=== PATIENT | male | born 1945 | race Caucasian/White ===

== ENCOUNTER 2023-09-25 23:09 | Inpatient (IN) | payer MEDICARE, OTHER ==
[~2023-09-25] VITALS: Ht 177.8 cm; Wt 72.6 kg
[2023-09-26 00:53] LABS: CALCIUM, SERUM 9.1 mg/dL (8.5-10.1); CARBON DIOXIDE 25 mmol/L (21-32); CHLORIDE 105 mmol/L (98-107); CREATININE 0.8 mg/dL (0.6-1.3); GLUCOSE 118 mg/dL (74-106); POTASSIUM 3.6 mmol/L (3.5-5.1); SODIUM SERUM 138 mmol/L (136-145); UREA NITROGEN, BLOOD 10 mg/dL (7-18)
[2023-09-26 00:57] LABS: BASOPHILS % (AUTO) 0.3 % (0.0-2.0); EOSINOPHILS # (AUTO) 0.6 K/uL (0.0-0.7); EOSINOPHILS % (AUTO) 8.3 % (0.0-6.0); HEMATOCRIT 41 % (39-51); HEMOGLOBIN 13.9 g/dL (13.5-17.5); LYMPHOCYTES # (AUTO) 2.2 K/uL (0.8-4.8); LYMPHOCYTES % (AUTO) 28.6 % (20.0-44.0); MEAN CORPUSCULAR HEMOGLOBIN 30 PG (26.0-33.0); MEAN CORPUSCULAR HGB CONC 34 g/dl (31.0-36.0); MEAN CORPUSCULAR VOLUME 90 fL (80-96); MONOCYTES # (AUTO) 0.6 K/uL (0.1-1.30); MONOCYTES % (AUTO) 7.3 % (2.0-12.0); NEUTROPHILS # (AUTO) 4.2 K/uL (1.8-8.9); NEUTROPHILS % (AUTO) 55.5 % (43.0-81.0); PLATELET COUNT (AUTO) 160 K/uL (150-450); RED CELL DISTRIBUTION WIDTH 14.4 % (11.5-15.0); WHITE BLOOD COUNT (AUTO) 7.7 K/uL (4.3-11.0)
[2023-09-26 00:58] LABS: ALANINE AMINOTRANSFERASE 13 U/L (12-78); ALBUMIN 3.5 g/dL (3.4-5.0); ALCOHOL, BLOOD < 3 mg/dL (0-10); ALKALINE PHOSPHATASE 114 U/L (46-116); ASPARTATE AMINOTRANSFERASE 14 U/L (15-37); BILIRUBIN,DIRECT 0.1 mg/dL (0.0-0.2); BILIRUBIN,TOTAL 0.4 mg/dL (0.2-1.0); TOTAL PROTEIN, SERUM 8.2 g/dL (6.4-8.2)
[2023-09-26 01:03] LABS: ACETAMINOPHEN <10 ug/ml (10-30); SALICYLATE 0.6 mg/dL (2.8-20.0)
[2023-09-26 02:28] LABS: APPEARANCE,URINE SLIGHTLY CLOUDY (CLEAR); BILIRUBIN,URINE NEGATIVE (NEGATIVE); BLOOD, URINE 1+ Ery/uL (NEGATIVE); COLOR,URINE YELLOW (YELLOW); KETONES,URINE NEGATIVE (NEGATIVE); LEUKOCYTE ESTERASE ,URINE NEGATIVE (NEGATIVE); NITRITE, URINE NEGATIVE (NEGATIVE); PH,URINE 6.5 (5.0-8.0); PROTEIN,URINE NEGATIVE (NEGATIVE); UGLUCOSE NEGATIVE (NEGATIVE)
[2023-09-26 02:29] LABS: ADD URINE CULTURE NO; BACTERIA,URINE Rare /HPF (None Seen); SQUAMOUS EPITHELIAL CELL,UR Rare /HPF (None Seen); WBC,URINE 0-2 /HPF (0-3)
[2023-09-26 02:38] LABS: AMPHETAMINE, URINE NEGATIVE (NEGATIVE); BARBITURATE, URINE NEGATIVE (NEGATIVE); BENZODIAZEPINE, URINE NEGATIVE (NEGATIVE); CANNABINOID, URINE NEGATIVE (NEGATIVE); COCCAINE, URINE NEGATIVE (NEGATIVE); OPIATE, URINE NEGATIVE (NEGATIVE); PHENCYCLIDINE SCREEN,URINE NEGATIVE (NEGATIVE)
[2023-09-26] MEDS ORDERED: QUET50TA PO (04:37)
[2023-09-26] MEDS ORDERED: BISA-79 PO (04:46)
[2023-09-26] MEDS ORDERED: TEMA15CA5 PO (04:46)
[2023-09-26] MEDS ORDERED: DOCU100C36 PO (04:46)
[2023-09-26] MEDS ORDERED: ACET-73 PO (04:46)
[2023-09-26] MEDS ORDERED: PANT40TA2 PO (04:46)
[2023-09-26] MEDS ORDERED: DONE10TA11 PO (04:46)
[2023-09-26] MEDS ORDERED: HYDR-500 PO (04:46)
[2023-09-26] MEDS ORDERED: DIVA250T PO (04:46)
[2023-09-26] MEDS ORDERED: LORAZEPAM 0.5 MG TABLET PO PRN (06:00)
[2023-09-26] MEDS ORDERED: MAG HYDROX/AL HYDROX/SIMETH 30 ML UDC PO PRN (06:00)
[2023-09-26] MEDS ORDERED: BLOOD SUGAR DIAGNOSTIC 1 EACH STRIP IN ONE (06:00)
[2023-09-26] MEDS ORDERED: ACETAMINOPHEN 325 MG TABLET PO PRN (06:00)
[2023-09-26] MEDS ORDERED: MAGNESIUM HYDROXIDE 30 ML UDC PO PRN (06:00)
[2023-09-26] MEDS ORDERED: Z GUARD REMEDY 4 OZ OINT TP PRN (07:00)
[2023-09-26 08:00] VITALS: BP 130/62; TEMP 98.2; O2SAT 97
[2023-09-26] MEDS ORDERED: BISA10SU11 RC (08:28)
[2023-09-26] MEDS ORDERED: ACET-868 PO (08:28)
[2023-09-26] MEDS ORDERED: MULT-213 PO (08:28)
[2023-09-26] MEDS: LORAZEPAM 0.5 MG TABLET PO PRN ×2 (12:31→18:41)
[2023-09-26] MEDS: DIVALPROEX SODIUM 250 MG TABLET.DR PO SCH ×2 (14:14→16:35)
[2023-09-26] MEDS: QUETIAPINE FUMARATE 100 MG TABLET PO SCH ×2 (14:14→16:35)
[2023-09-26 16:00] VITALS: BP 126/72; TEMP 97.9; O2SAT 96
[2023-09-26] MEDS ORDERED: BISACODYL SUPP (10 MG) 10 MG/SUPP.RECT SUPP.RECT RC PRN (20:00)
[2023-09-26 20:08] VITALS: BP 121/91; TEMP 98.1; O2SAT 97
[2023-09-26] MEDS: TEMAZEPAM 7.5 MG CAPSULE PO PRN (21:39)
[2023-09-26] MEDS: DONEPEZIL 5 MG TABLET PO SCH (21:39)
[2023-09-27 08:00] VITALS: BP 112/73; TEMP 97.7; O2SAT 97
[2023-09-27] MEDS: MULTIVIT W/MINERALS 1 TAB TABLET PO SCH (09:05)
[2023-09-27] MEDS: QUETIAPINE FUMARATE 100 MG TABLET PO SCH ×2 (09:05→16:40)
[2023-09-27] MEDS: DOCUSATE SODIUM 100 MG CAPSULE PO SCH (09:05)
[2023-09-27] MEDS: PANTOPRAZOLE 40 MG TABLET.DR PO SCH (09:06)
[2023-09-27] MEDS: DIVALPROEX SODIUM 250 MG TABLET.DR PO SCH ×2 (09:06→16:40)
[2023-09-27] MEDS: UREA LOTION 10% 177 ML BOTTLE TP SCH (13:27)
[2023-09-27 16:00] VITALS: BP 116/63; TEMP 97.9; O2SAT 96
[2023-09-27 20:20] VITALS: BP 127/73; TEMP 97.9; O2SAT 100
[2023-09-27] MEDS: DONEPEZIL 5 MG TABLET PO SCH (22:05)
[2023-09-28 07:27] LABS: BASOPHILS % (AUTO) 0.2 % (0.0-2.0); EOSINOPHILS # (AUTO) 0.8 K/uL (0.0-0.7); EOSINOPHILS % (AUTO) 10.7 % (0.0-6.0); HEMATOCRIT 41 % (39-51); HEMOGLOBIN 13.4 g/dL (13.5-17.5); LYMPHOCYTES # (AUTO) 1.5 K/uL (0.8-4.8); LYMPHOCYTES % (AUTO) 20.5 % (20.0-44.0); MEAN CORPUSCULAR HEMOGLOBIN 30 PG (26.0-33.0); MEAN CORPUSCULAR HGB CONC 33 g/dl (31.0-36.0); MEAN CORPUSCULAR VOLUME 91 fL (80-96); MONOCYTES # (AUTO) 0.5 K/uL (0.1-1.30); MONOCYTES % (AUTO) 7.5 % (2.0-12.0); NEUTROPHILS # (AUTO) 4.5 K/uL (1.8-8.9); NEUTROPHILS % (AUTO) 61.1 % (43.0-81.0); PLATELET COUNT (AUTO) 154 K/uL (150-450); RED BLOOD CELL COUNT(AUTO) 4.49 MIL/uL (4.5-6.0); RED CELL DISTRIBUTION WIDTH 14.7 % (11.5-15.0); WHITE BLOOD COUNT (AUTO) 7.3 K/uL (4.3-11.0)
[2023-09-28 08:00] VITALS: BP 126/61; TEMP 98.6; O2SAT 97
[2023-09-28 08:18] LABS: ALBUMIN 2.8 g/dL (3.4-5.0); BILIRUBIN,TOTAL 0.6 mg/dL (0.2-1.0); CALCIUM, SERUM 8.5 mg/dL (8.5-10.1); CREATININE 0.8 mg/dL (0.6-1.3); POTASSIUM 3.6 mmol/L (3.5-5.1)
[2023-09-28] MEDS: PANTOPRAZOLE 40 MG TABLET.DR PO SCH (08:27)
[2023-09-28] MEDS: MULTIVIT W/MINERALS 1 TAB TABLET PO SCH (09:13)
[2023-09-28] MEDS: DOCUSATE SODIUM 100 MG CAPSULE PO SCH (09:13)
[2023-09-28] MEDS: DIVALPROEX SODIUM 250 MG TABLET.DR PO SCH ×2 (09:13→16:44)
[2023-09-28] MEDS: QUETIAPINE FUMARATE 100 MG TABLET PO SCH ×2 (09:13→16:44)
[2023-09-28] MEDS: UREA LOTION 10% 177 ML BOTTLE TP SCH (09:15)
[2023-09-28 16:07] VITALS: BP 123/68; TEMP 98.1; O2SAT 99
[2023-09-28 20:00] VITALS: BP 120/80; TEMP 98; O2SAT 100
[2023-09-28] MEDS: DONEPEZIL 5 MG TABLET PO SCH (21:20)
[2023-09-29 08:00] VITALS: BP 111/89; TEMP 98.4; O2SAT 98
[2023-09-29] MEDS: MULTIVIT W/MINERALS 1 TAB TABLET PO SCH (09:16)
[2023-09-29] MEDS: PANTOPRAZOLE 40 MG TABLET.DR PO SCH (09:16)
[2023-09-29] MEDS: DOCUSATE SODIUM 100 MG CAPSULE PO SCH (09:16)
[2023-09-29] MEDS: DIVALPROEX SODIUM 250 MG TABLET.DR PO SCH ×2 (09:16→17:16)
[2023-09-29] MEDS: QUETIAPINE FUMARATE 100 MG TABLET PO SCH ×2 (09:17→17:17)
[2023-09-29] MEDS: UREA LOTION 10% 177 ML BOTTLE TP SCH (09:18)
[2023-09-29 16:00] VITALS: BP 113/56; TEMP 98.8; O2SAT 98
[2023-09-29 19:41] VITALS: BP 112/52; TEMP 98.6; O2SAT 97
[2023-09-29] MEDS: DONEPEZIL 5 MG TABLET PO SCH (21:06)
[2023-09-30 08:06] VITALS: BP 126/60; TEMP 97; O2SAT 99
[2023-09-30] MEDS: PANTOPRAZOLE 40 MG TABLET.DR PO SCH (08:20)
[2023-09-30] MEDS: DOCUSATE SODIUM 100 MG CAPSULE PO SCH (08:20)
[2023-09-30] MEDS: DIVALPROEX SODIUM 250 MG TABLET.DR PO SCH ×2 (08:20→16:08)
[2023-09-30] MEDS: MULTIVIT W/MINERALS 1 TAB TABLET PO SCH (08:20)
[2023-09-30] MEDS: QUETIAPINE FUMARATE 100 MG TABLET PO SCH ×2 (08:20→16:09)
[2023-09-30] MEDS: UREA LOTION 10% 177 ML BOTTLE TP SCH (08:21)
[2023-09-30] MEDS: LORAZEPAM 0.5 MG TABLET PO PRN (12:33)
[2023-09-30 14:46] VITALS: BP 119/61; TEMP 98.1; O2SAT 96
[2023-09-30] MEDS: CLOTRIMAZOLE/BETAMETASONE DIPROPIONATE 15 GM TUBE TP SCH (17:18)
[2023-09-30] MEDS: DONEPEZIL 5 MG TABLET PO SCH (21:34)
[2023-09-30 22:00] VITALS: BP 143/75; TEMP 98.4; O2SAT 97
[2023-10-01 08:00] VITALS: BP 141/70; TEMP 97.9; O2SAT 100
[2023-10-01] MEDS: DIVALPROEX SODIUM 250 MG TABLET.DR PO SCH ×3 (08:23→16:10)
[2023-10-01] MEDS: DOCUSATE SODIUM 100 MG CAPSULE PO SCH (08:23)
[2023-10-01] MEDS: PANTOPRAZOLE 40 MG TABLET.DR PO SCH (08:23)
[2023-10-01] MEDS: MULTIVIT W/MINERALS 1 TAB TABLET PO SCH (08:23)
[2023-10-01] MEDS: QUETIAPINE FUMARATE 100 MG TABLET PO SCH ×2 (08:24→16:10)
[2023-10-01] MEDS: UREA LOTION 10% 177 ML BOTTLE TP SCH (08:39)
[2023-10-01] MEDS: CLOTRIMAZOLE/BETAMETASONE DIPROPIONATE 15 GM TUBE TP SCH ×2 (08:39→17:16)
[2023-10-01 16:00] VITALS: BP 146/80; TEMP 98; O2SAT 94
[2023-10-01 20:00] VITALS: BP 123/67; TEMP 98.1; O2SAT 97
[2023-10-01] MEDS: TEMAZEPAM 7.5 MG CAPSULE PO PRN (21:14)
[2023-10-01] MEDS: DONEPEZIL 5 MG TABLET PO SCH (21:14)
[2023-10-02] MEDS: LORAZEPAM 0.5 MG TABLET PO PRN (01:05)
[2023-10-02 08:00] VITALS: BP 116/66; TEMP 97.7; O2SAT 95
[2023-10-02] MEDS: QUETIAPINE FUMARATE 100 MG TABLET PO SCH ×2 (08:12→16:14)
[2023-10-02] MEDS: DIVALPROEX SODIUM 250 MG TABLET.DR PO SCH ×3 (08:12→16:14)
[2023-10-02] MEDS: PANTOPRAZOLE 40 MG TABLET.DR PO SCH (08:12)
[2023-10-02] MEDS: MULTIVIT W/MINERALS 1 TAB TABLET PO SCH (08:12)
[2023-10-02] MEDS: DOCUSATE SODIUM 100 MG CAPSULE PO SCH (08:12)
[2023-10-02] MEDS: UREA LOTION 10% 177 ML BOTTLE TP SCH (09:04)
[2023-10-02] MEDS: CLOTRIMAZOLE/BETAMETASONE DIPROPIONATE 15 GM TUBE TP SCH ×2 (09:04→17:04)
[2023-10-02 16:00] VITALS: BP_SYST 121; BP_SYST 129; BP_DIAS 62; BP_DIAS 71; TEMP 98.1; TEMP 98.4; O2SAT 100; O2SAT 98
[2023-10-02 20:00] VITALS: BP 126/71; TEMP 97.6; O2SAT 97
[2023-10-02] MEDS: DONEPEZIL 5 MG TABLET PO SCH (21:39)
[2023-10-03 08:00] VITALS: BP 129/77; TEMP 98; O2SAT 96
[2023-10-03] MEDS: PANTOPRAZOLE 40 MG TABLET.DR PO SCH (08:02)
[2023-10-03] MEDS: DIVALPROEX SODIUM 250 MG TABLET.DR PO SCH ×3 (08:03→16:12)
[2023-10-03] MEDS: MULTIVIT W/MINERALS 1 TAB TABLET PO SCH (08:03)
[2023-10-03] MEDS: DOCUSATE SODIUM 100 MG CAPSULE PO SCH (08:03)
[2023-10-03] MEDS: QUETIAPINE FUMARATE 25 MG TABLET PO SCH (08:03)
[2023-10-03] MEDS: CLOTRIMAZOLE/BETAMETASONE DIPROPIONATE 15 GM TUBE TP SCH ×2 (09:06→16:12)
[2023-10-03] MEDS: UREA LOTION 10% 177 ML BOTTLE TP SCH (09:07)
[2023-10-03 16:00] VITALS: BP 121/69; TEMP 98.6; O2SAT 96
[2023-10-03 20:00] VITALS: BP 129/67; TEMP 98.5; O2SAT 97
[2023-10-03] MEDS: DONEPEZIL 5 MG TABLET PO SCH (21:24)
[2023-10-03] MEDS: QUETIAPINE FUMARATE 100 MG TABLET PO SCH (21:24)
[2023-10-04 08:00] VITALS: BP 132/78; TEMP 97.8; O2SAT 94
[2023-10-04] MEDS: PANTOPRAZOLE 40 MG TABLET.DR PO SCH (08:13)
[2023-10-04] MEDS: QUETIAPINE FUMARATE 25 MG TABLET PO SCH (09:45)
[2023-10-04] MEDS: UREA LOTION 10% 177 ML BOTTLE TP SCH (09:45)
[2023-10-04] MEDS: MULTIVIT W/MINERALS 1 TAB TABLET PO SCH (09:45)
[2023-10-04] MEDS: DOCUSATE SODIUM 100 MG CAPSULE PO SCH (09:45)
[2023-10-04] MEDS: DIVALPROEX SODIUM 250 MG TABLET.DR PO SCH ×3 (09:45→17:04)
[2023-10-04] MEDS: CLOTRIMAZOLE/BETAMETASONE DIPROPIONATE 15 GM TUBE TP SCH ×2 (09:45→17:08)
[2023-10-04 16:00] VITALS: BP 138/76; TEMP 98; O2SAT 96
[2023-10-04] MEDS: LORAZEPAM 0.5 MG TABLET PO PRN (17:04)
[2023-10-04 20:31] VITALS: BP 131/73; TEMP 98; O2SAT 96
[2023-10-04] MEDS: DONEPEZIL 5 MG TABLET PO SCH (21:18)
[2023-10-04] MEDS: QUETIAPINE FUMARATE 100 MG TABLET PO SCH (21:19)
[2023-10-05 07:01] LABS: BASOPHILS % (AUTO) 0.3 % (0.0-2.0); EOSINOPHILS # (AUTO) 0.5 K/uL (0.0-0.7); EOSINOPHILS % (AUTO) 8.5 % (0.0-6.0); HEMATOCRIT 42 % (39-51); HEMOGLOBIN 13.8 g/dL (13.5-17.5); LYMPHOCYTES # (AUTO) 1.8 K/uL (0.8-4.8); LYMPHOCYTES % (AUTO) 28.5 % (20.0-44.0); MEAN CORPUSCULAR HEMOGLOBIN 30 PG (26.0-33.0); MEAN CORPUSCULAR HGB CONC 33 g/dl (31.0-36.0); MEAN CORPUSCULAR VOLUME 91 fL (80-96); MONOCYTES # (AUTO) 0.5 K/uL (0.1-1.30); MONOCYTES % (AUTO) 7.9 % (2.0-12.0); NEUTROPHILS # (AUTO) 3.5 K/uL (1.8-8.9); NEUTROPHILS % (AUTO) 54.8 % (43.0-81.0); PLATELET COUNT (AUTO) 170 K/uL (150-450); RED BLOOD CELL COUNT(AUTO) 4.63 MIL/uL (4.5-6.0); RED CELL DISTRIBUTION WIDTH 14.5 % (11.5-15.0); WHITE BLOOD COUNT (AUTO) 6.4 K/uL (4.3-11.0)
[2023-10-05 07:27] LABS: ALBUMIN 3.1 g/dL (3.4-5.0); BILIRUBIN,TOTAL 0.4 mg/dL (0.2-1.0); CALCIUM, SERUM 8.8 mg/dL (8.5-10.1); CREATININE 0.8 mg/dL (0.6-1.3); POTASSIUM 3.7 mmol/L (3.5-5.1); TOTAL PROTEIN, SERUM 7.6 g/dL (6.4-8.2)
[2023-10-05 08:00] VITALS: BP 126/77; TEMP 97.9; O2SAT 98
[2023-10-05] MEDS: PANTOPRAZOLE 40 MG TABLET.DR PO SCH (08:02)
[2023-10-05] MEDS: CLOTRIMAZOLE/BETAMETASONE DIPROPIONATE 15 GM TUBE TP SCH ×2 (08:34→16:11)
[2023-10-05] MEDS: UREA LOTION 10% 177 ML BOTTLE TP SCH (08:34)
[2023-10-05] MEDS: DIVALPROEX SODIUM 250 MG TABLET.DR PO SCH ×3 (08:37→16:11)
[2023-10-05] MEDS: MULTIVIT W/MINERALS 1 TAB TABLET PO SCH (08:37)
[2023-10-05] MEDS: QUETIAPINE FUMARATE 25 MG TABLET PO SCH (08:37)
[2023-10-05] MEDS: DOCUSATE SODIUM 100 MG CAPSULE PO SCH (08:37)
[2023-10-05 16:00] VITALS: BP 142/78; TEMP 97.9; O2SAT 100
[2023-10-05 20:04] VITALS: BP 132/72; TEMP 98.4; O2SAT 99
[2023-10-05] MEDS: QUETIAPINE FUMARATE 100 MG TABLET PO SCH (22:03)
[2023-10-05] MEDS: DONEPEZIL 5 MG TABLET PO SCH (22:03)
[2023-10-06 08:00] VITALS: BP 132/79; TEMP 97.8; O2SAT 96
[2023-10-06] MEDS: QUETIAPINE FUMARATE 25 MG TABLET PO SCH (08:46)
[2023-10-06] MEDS: DOCUSATE SODIUM 100 MG CAPSULE PO SCH (08:46)
[2023-10-06] MEDS: DIVALPROEX SODIUM 250 MG TABLET.DR PO SCH ×2 (08:46→12:04)
[2023-10-06] MEDS: MULTIVIT W/MINERALS 1 TAB TABLET PO SCH (08:46)
[2023-10-06] MEDS: PANTOPRAZOLE 40 MG TABLET.DR PO SCH (08:46)
[2023-10-06] MEDS: CLOTRIMAZOLE/BETAMETASONE DIPROPIONATE 15 GM TUBE TP SCH (09:12)
[2023-10-06] MEDS: UREA LOTION 10% 177 ML BOTTLE TP SCH (09:12)
== END 2023-10-06 13:40 | DRG 885 ==
LOC: ER 23:32 → GPS 09-26 04:19
PROVIDERS: ADMIT Psychiatry & Neurology Psychosomatic Medicine; ATTEND Nurse Practitioner Family
PROC: 0HBBXZX Excision of Right Upper Arm Skin, External Approach, Diagnostic (ICD-10-PCS; principal; 2023-09-28)
PROC: 0HB7XZX Excision of Abdomen Skin, External Approach, Diagnostic (ICD-10-PCS; 2023-09-28)
DX: F29 Unspecified psychosis not due to a substance or known physiological condition (principal); G93.41 Metabolic encephalopathy; F03.918 Unspecified dementia, unspecified severity, with other behavioral disturbance; B35.3 Tinea pedis; F20.9 Schizophrenia, unspecified; J44.9 Chronic obstructive pulmonary disease, unspecified; R21 Rash and other nonspecific skin eruption; L60.1 Onycholysis; Z20.822 Contact with and (suspected) exposure to COVID-19
CPT/HCPCS: 36415; 80048-TC; 80053-TC; 80061-TC; 80076-TC; 80164-TC; 81001; 82962-TC; 85025-TC; 87081-TC; 97112-TC; 97116-TC; 97530-TC; C9803; G0480

== ENCOUNTER 2024-04-11 15:25 | Inpatient (IN) | payer MEDICARE, OTHER ==
[~2024-04-11] VITALS: Ht 172.7 cm; Wt 73.0 kg
[~2024-04-11 15:25] MED LIST: ACET-868 PO; BISA10SU11 RC; DOCU100C36 PO; DONE10TA11 PO; HYDR-500 PO; MULT-213 PO; PANT40TA2 PO
[2024-04-11 16:26] LABS: BASOPHILS % (AUTO) 0.3 % (0.0-2.0); EOSINOPHILS # (AUTO) 0.4 K/uL (0.0-0.7); EOSINOPHILS % (AUTO) 5.1 % (0.0-6.0); HEMATOCRIT 43 % (39-51); HEMOGLOBIN 14.4 g/dL (13.5-17.5); LYMPHOCYTES # (AUTO) 1.8 K/uL (0.8-4.8); LYMPHOCYTES % (AUTO) 22.6 % (20.0-44.0); MEAN CORPUSCULAR HEMOGLOBIN 30 PG (26.0-33.0); MEAN CORPUSCULAR HGB CONC 34 g/dl (31.0-36.0); MEAN CORPUSCULAR VOLUME 90 fL (80-96); MONOCYTES # (AUTO) 0.5 K/uL (0.1-1.30); MONOCYTES % (AUTO) 6.1 % (2.0-12.0); NEUTROPHILS # (AUTO) 5.2 K/uL (1.8-8.9); NEUTROPHILS % (AUTO) 65.9 % (43.0-81.0); PLATELET COUNT (AUTO) 154 K/uL (150-450); RED BLOOD CELL COUNT(AUTO) 4.81 MIL/uL (4.5-6.0); RED CELL DISTRIBUTION WIDTH 15.8 % (11.5-15.0); WHITE BLOOD COUNT (AUTO) 7.9 K/uL (4.3-11.0)
[2024-04-11 16:44] LABS: CALCIUM, SERUM 9.3 mg/dL (8.5-10.1); POTASSIUM 4.3 mmol/L (3.5-5.1)
[2024-04-11] MEDS ORDERED: UREA198C TP (16:44)
[2024-04-11] MEDS ORDERED: QUET50TA PO (16:44)
[2024-04-11] MEDS ORDERED: DIVA-76 PO (16:44)
[2024-04-11] MEDS ORDERED: MAGN400O6 PO (16:44)
[2024-04-11] MEDS ORDERED: BISA10SU11 RC (16:44)
[2024-04-11 16:48] LABS: BILIRUBIN,DIRECT 0.1 mg/dL (0.0-0.2); BILIRUBIN,TOTAL 0.4 mg/dL (0.2-1.0); TOTAL PROTEIN, SERUM 8.6 g/dL (6.4-8.2)
[2024-04-11 16:49] LABS: SALICYLATE 0.6 mg/dL (2.8-20.0)
[2024-04-11 17:29] LABS: APPEARANCE,URINE CLEAR (CLEAR); BILIRUBIN,URINE NEGATIVE (NEGATIVE); BLOOD, URINE TRACE-INTA Ery/uL (NEGATIVE); COLOR,URINE YELLOW (YELLOW); KETONES,URINE TRACE mg/dL (NEGATIVE); LEUKOCYTE ESTERASE ,URINE NEGATIVE (NEGATIVE); NITRITE, URINE NEGATIVE (NEGATIVE); PROTEIN,URINE NEGATIVE (NEGATIVE); UGLUCOSE NEGATIVE (NEGATIVE); UROBILINOGEN,URINE 0.2 EU/dL (0.2)
[2024-04-11 17:52] LABS: AMPHETAMINE, URINE NEGATIVE (NEGATIVE); BARBITURATE, URINE NEGATIVE (NEGATIVE); BENZODIAZEPINE, URINE NEGATIVE (NEGATIVE); CANNABINOID, URINE NEGATIVE (NEGATIVE); COCCAINE, URINE NEGATIVE (NEGATIVE); OPIATE, URINE NEGATIVE (NEGATIVE); PHENCYCLIDINE SCREEN,URINE NEGATIVE (NEGATIVE)
[2024-04-11 18:15] LABS: ADD URINE CULTURE NO; BACTERIA,URINE None seen /HPF (None Seen); MUCUS,URINE Few /LPF (None Seen); SQUAMOUS EPITHELIAL CELL,UR 0-2 /HPF (None Seen); WBC,URINE 0-2 /HPF (0-3)
[2024-04-11] MEDS ORDERED: BISACODYL SUPP (10 MG) 10 MG/SUPP.RECT SUPP.RECT RC PRN (21:00)
[2024-04-11] MEDS ORDERED: ACETAMINOPHEN 325 MG TABLET PO PRN (21:30)
[2024-04-11] MEDS ORDERED: MAG HYDROX/AL HYDROX/SIMETH 30 ML UDC PO PRN (21:30)
[2024-04-11] MEDS ORDERED: MAGNESIUM HYDROXIDE 30 ML UDC PO PRN (21:30)
[2024-04-11] MEDS ORDERED: LORAZEPAM 0.5 MG TABLET PO PRN (21:30)
[2024-04-11] MEDS ORDERED: ZOLPIDEM TARTRATE 5 MG TABLET PO PRN (21:30)
[2024-04-11] MEDS: BLOOD SUGAR DIAGNOSTIC 1 EACH STRIP IN ONE (22:23)
[2024-04-11 22:40] VITALS: BP 140/56; TEMP 98; O2SAT 97
[2024-04-12] MEDS: PANTOPRAZOLE 40 MG TABLET.DR PO SCH (07:30)
[2024-04-12 08:00] VITALS: BP 118/58; TEMP 98.7; O2SAT 96
[2024-04-12] MEDS: DOCUSATE SODIUM 100 MG CAPSULE PO SCH (08:05)
[2024-04-12] MEDS: MULTIVIT W/MINERALS 1 TAB TABLET PO SCH (08:05)
[2024-04-12] MEDS ORDERED: LORAZEPAM 0.5 MG TABLET PO PRN (09:30)
[2024-04-12] MEDS: DIVALPROEX SODIUM 125 MG CAP.SPRINK PO SCH (10:08)
[2024-04-12] MEDS: CLOTRIMAZOLE/BETAMETASONE DIPROPIONATE 15 GM TUBE TP SCH (11:08)
[2024-04-12] MEDS: QUETIAPINE FUMARATE 25 MG TABLET PO SCH (12:33)
[2024-04-12] MEDS ORDERED: DIVALPROEX SODIUM 250 MG TABLET.DR PO SCH (13:00)
[2024-04-12 15:17] LABS: CHOLESTEROL 150 mg/dL (<200); HDL CHOLESTEROL 36 mg/dL (40-60); LDL 101 mg/dL (0-99); TRIGLYCERIDES 120 mg/dL (30-150)
[2024-04-12 15:18] LABS: ALBUMIN 3.2 g/dL (3.4-5.0); BILIRUBIN,TOTAL 0.4 mg/dL (0.2-1.0); CALCIUM, SERUM 9.2 mg/dL (8.5-10.1); POTASSIUM 3.9 mmol/L (3.5-5.1); TOTAL PROTEIN, SERUM 9.1 g/dL (6.4-8.2)
[2024-04-12 16:00] VITALS: BP 143/75; TEMP 98.7; O2SAT 100
[2024-04-12 20:28] VITALS: BP 145/56; TEMP 98; O2SAT 97
[2024-04-12] MEDS: DONEPEZIL 5 MG TABLET PO SCH ×2 (21:31→21:54)
[2024-04-12] MEDS: MEMANTINE HCL 5 MG TABLET PO SCH (21:31)
[2024-04-13 08:00] VITALS: BP 107/65; TEMP 98.6; O2SAT 96
[2024-04-13 16:00] VITALS: BP 113/55; TEMP 97.7; O2SAT 99
[2024-04-13 20:00] VITALS: BP 106/62; TEMP 97.9; O2SAT 98
[2024-04-14 08:00] VITALS: BP 128/66; TEMP 98; O2SAT 96
[2024-04-14] MEDS: UREA 10% -AHA 4% CREAM 57 GM TUBE TP SCH (12:03)
[2024-04-14 16:00] VITALS: BP 122/66; TEMP 97.6; O2SAT 98
[2024-04-14 20:00] VITALS: BP 120/56; TEMP 98.7; O2SAT 96
[2024-04-15 08:00] VITALS: BP 126/63; TEMP 97.7; O2SAT 98
[2024-04-15 16:00] VITALS: BP 127/73; TEMP 98.2; O2SAT 98
[2024-04-15 20:00] VITALS: BP 129/65; TEMP 98; O2SAT 97
[2024-04-16 08:00] VITALS: BP 140/90; TEMP 98; O2SAT 98
[2024-04-16 16:00] VITALS: BP 119/56; TEMP 98.1; O2SAT 98
[2024-04-16] MEDS: DIVALPROEX SODIUM 125 MG CAP.SPRINK PO SCH (16:13)
[2024-04-16 21:12] VITALS: BP 125/66; TEMP 98.2; O2SAT 97
[2024-04-17 09:18] VITALS: BP 117/76; TEMP 96.7; O2SAT 96
[2024-04-17 16:20] VITALS: BP 116/61; TEMP 98.6; O2SAT 98
[2024-04-17 20:22] VITALS: BP 124/58; TEMP 98.6; O2SAT 98
[2024-04-18 08:00] VITALS: BP 123/93; TEMP 98.1; O2SAT 98
[2024-04-18 16:00] VITALS: BP 115/67; TEMP 98.1; O2SAT 97
[2024-04-18 20:13] VITALS: BP 132/76; TEMP 98.1; O2SAT 97
[2024-04-19 08:00] VITALS: BP_SYST 115; BP_SYST 141; BP_DIAS 59; BP_DIAS 79; TEMP 97.9; TEMP 98; O2SAT 96; O2SAT 97
[2024-04-19 16:00] VITALS: BP 109/55; TEMP 97.8; O2SAT 98
[2024-04-19 20:07] VITALS: BP 116/59; TEMP 98; O2SAT 99
[2024-04-20 08:00] VITALS: BP 127/59; TEMP 97.7; O2SAT 98
[2024-04-20 16:00] VITALS: BP 121/70; TEMP 97.9; O2SAT 98
[2024-04-20 20:00] VITALS: BP 143/65; TEMP 98.2; O2SAT 99
[2024-04-21 08:00] VITALS: BP 119/64; TEMP 98; O2SAT 100
[2024-04-21 16:00] VITALS: BP 112/67; TEMP 97.6; O2SAT 96
[2024-04-21 20:00] VITALS: BP 134/62; TEMP 98.1; O2SAT 97
[2024-04-22 08:00] VITALS: BP 131/90; TEMP 97.9; O2SAT 97
== END 2024-04-22 13:30 | DRG 885 ==
LOC: ER 15:57 → GPS 19:47
PROVIDERS: ADMIT Psychiatry & Neurology Psychiatry
DX: F29 Unspecified psychosis not due to a substance or known physiological condition (principal); F01.54 Vascular dementia, unspecified severity, with anxiety; G93.40 Encephalopathy, unspecified; F01.518 Vascular dementia, unspecified severity, with other behavioral disturbance; K21.9 Gastro-esophageal reflux disease without esophagitis; B35.1 Tinea unguium; B35.3 Tinea pedis; G47.00 Insomnia, unspecified; J44.9 Chronic obstructive pulmonary disease, unspecified; Z20.822 Contact with and (suspected) exposure to COVID-19; F39 Unspecified mood [affective] disorder; F25.0 Schizoaffective disorder, bipolar type; F41.9 Anxiety disorder, unspecified
CPT/HCPCS: 36415; 80048-TC; 80053-TC; 80061-TC; 80076-TC; 80164-TC; 81001; 82962-TC; 85025-TC; 97112-TC; 97116-TC; 97530-TC; G0480

== ENCOUNTER 2024-11-01 16:51 | Inpatient (IN) | payer MEDICARE, OTHER ==
[~2024-11-01] VITALS: Ht 167.6 cm; Wt 73.0 kg
[~2024-11-01 16:51] MED LIST changes: +DIVA-76 PO; +MAGN400O6 PO; +QUET50TA PO; +UREA198C TP
[2024-11-01] MEDS ORDERED: MAG HYDROX/AL HYDROX/SIMETH 30 ML UDC PO PRN (18:30)
[2024-11-01] MEDS ORDERED: BISACODYL SUPP (10 MG) 10 MG/SUPP.RECT SUPP.RECT RC PRN (18:30)
[2024-11-01] MEDS ORDERED: ACETAMINOPHEN 325 MG TABLET PO PRN (18:30)
[2024-11-01] MEDS ORDERED: Z GUARD REMEDY 4 OZ OINT TP PRN (18:30)
[2024-11-01] MEDS ORDERED: ONDANSETRON HCL/PF 4 MG/2 ML VIAL IVP PRN (18:30)
[2024-11-01] MEDS ORDERED: MAGNESIUM HYDROXIDE 30 ML UDC PO PRN ×2 (18:30)
[2024-11-01 20:11] LABS: BASOPHILS % (AUTO) 0.5 % (0.0-2.0); EOSINOPHILS # (AUTO) 0.4 K/uL (0.0-0.7); HEMATOCRIT 42 % (39-51); HEMOGLOBIN 14.3 g/dL (13.5-17.5); LYMPHOCYTES # (AUTO) 1.8 K/uL (0.8-4.8); LYMPHOCYTES % (AUTO) 34.9 % (20.0-44.0); MEAN CORPUSCULAR HEMOGLOBIN 30 PG (26.0-33.0); MEAN CORPUSCULAR HGB CONC 34 g/dl (31.0-36.0); MEAN CORPUSCULAR VOLUME 90 fL (80-96); MONOCYTES # (AUTO) 0.5 K/uL (0.1-1.30); MONOCYTES % (AUTO) 9.9 % (2.0-12.0); NEUTROPHILS # (AUTO) 2.4 K/uL (1.8-8.9); NEUTROPHILS % (AUTO) 46.7 % (43.0-81.0); PLATELET COUNT (AUTO) 123 K/uL (150-450); RED BLOOD CELL COUNT(AUTO) 4.72 MIL/uL (4.5-6.0); RED CELL DISTRIBUTION WIDTH 14.2 % (11.5-15.0); WHITE BLOOD COUNT (AUTO) 5.1 K/uL (4.3-11.0)
[2024-11-01 20:29] LABS: CALCIUM, SERUM 8.3 mg/dL (8.5-10.1); CARBON DIOXIDE 29 mmol/L (21-32); CHLORIDE 104 mmol/L (98-107); CREATININE 0.9 mg/dL (0.6-1.3); GLUCOSE 101 mg/dL (74-106); SODIUM SERUM 137 mmol/L (136-145); UREA NITROGEN, BLOOD 12 mg/dL (7-18)
[2024-11-01 20:32] LABS: NT-PRO BNP 158 pg/mL (0-125)
[2024-11-01 21:44] VITALS: BP 139/68; TEMP 97.9; O2SAT 95
[2024-11-01] MEDS: DONEPEZIL 5 MG TABLET PO SCH (23:08)
[2024-11-01] MEDS: QUETIAPINE FUMARATE 25 MG TABLET PO SCH (23:08)
[2024-11-01] MEDS: ENOXAPARIN SODIUM 30 MG/0.3 ML DISP.SYRIN SQ SCH (23:09)
[2024-11-02 06:38] LABS: BASOPHILS % (AUTO) 0.3 % (0.0-2.0); EOSINOPHILS # (AUTO) 0.4 K/uL (0.0-0.7); HEMATOCRIT 43 % (39-51); LYMPHOCYTES % (AUTO) 37.5 % (20.0-44.0); MEAN CORPUSCULAR HEMOGLOBIN 30 PG (26.0-33.0); MEAN CORPUSCULAR HGB CONC 33 g/dl (31.0-36.0); MEAN CORPUSCULAR VOLUME 91 fL (80-96); MONOCYTES # (AUTO) 0.5 K/uL (0.1-1.30); MONOCYTES % (AUTO) 9.8 % (2.0-12.0); NEUTROPHILS # (AUTO) 2.5 K/uL (1.8-8.9); NEUTROPHILS % (AUTO) 45.4 % (43.0-81.0); PLATELET COUNT (AUTO) 106 K/uL (150-450); RED BLOOD CELL COUNT(AUTO) 4.68 MIL/uL (4.5-6.0); RED CELL DISTRIBUTION WIDTH 14.3 % (11.5-15.0); WHITE BLOOD COUNT (AUTO) 5.4 K/uL (4.3-11.0)
[2024-11-02 07:29] LABS: CALCIUM, SERUM 8.3 mg/dL (8.5-10.1); CREATININE 0.9 mg/dL (0.6-1.3); POTASSIUM 3.9 mmol/L (3.5-5.1)
[2024-11-02 07:30] LABS: MAGNESIUM 2.3 mg/dL (1.8-2.4); PHOSPHORUS 3.2 mg/dL (2.5-4.9)
[2024-11-02 08:00] VITALS: BP 118/79; TEMP 98.1; O2SAT 96
[2024-11-02] MEDS ORDERED: PETR368J TP (08:19)
[2024-11-02] MEDS ORDERED: DONE5TAB34 PO (08:19)
[2024-11-02] MEDS ORDERED: MEMA5TAB PO (08:19)
[2024-11-02] MEDS ORDERED: DIVA-78 PO (08:19)
[2024-11-02] MEDS ORDERED: QUET25TA PO (08:19)
[2024-11-02] MEDS: DOCUSATE SODIUM 100 MG CAPSULE PO SCH (10:03)
[2024-11-02] MEDS: PANTOPRAZOLE 40 MG TABLET.DR PO SCH (10:03)
[2024-11-02] MEDS: DIVALPROEX SODIUM 250 MG TABLET.DR PO SCH (10:03)
[2024-11-02] MEDS: hydrOXYzine PAMOATE 25 MG CAPSULE PO SCH (10:07)
[2024-11-02] MEDS ORDERED: predniSONE 50 MG TABLET PO SCH (11:30)
[2024-11-02] MEDS ORDERED: ALBUTEROL FS 2.5 MG/0.5 ML VIAL.NEB NEB PRN (11:30)
[2024-11-02] MEDS: PERMETHRIN 5% CRM 60 GM TUBE TP ONE ×2 (14:30→21:22)
[2024-11-02 16:00] VITALS: BP 130/74; TEMP 98.7; O2SAT 94
[2024-11-02 20:00] VITALS: BP 126/67; TEMP 98.4; O2SAT 97
[2024-11-03 08:00] VITALS: BP 129/77; TEMP 97.5; O2SAT 99
[2024-11-03] MEDS: predniSONE 20 MG TABLET PO SCH (08:50)
[2024-11-03 16:00] VITALS: BP 129/68; TEMP 97.2; O2SAT 97
[2024-11-03 20:00] VITALS: BP 138/72; TEMP 98.4; O2SAT 94
== END 2024-11-04 13:30 | DRG 191 ==
LOC: ER 16:52 → MEDSG1 21:06 → MED 21:24
PROVIDERS: ADMIT Internal Medicine; ATTEND Internal Medicine
DX: J44.1 Chronic obstructive pulmonary disease with (acute) exacerbation (principal); F03.92 Unspecified dementia, unspecified severity, with psychotic disturbance; F03.94 Unspecified dementia, unspecified severity, with anxiety; J98.11 Atelectasis; J44.9 Chronic obstructive pulmonary disease, unspecified; F20.9 Schizophrenia, unspecified; K21.9 Gastro-esophageal reflux disease without esophagitis; L29.9 Pruritus, unspecified; J06.9 Acute upper respiratory infection, unspecified
CPT/HCPCS: 36415; 71045-TC; 80048-TC; 83735-TC; 83880; 84100-TC; 84484-TC; 85025-TC; G0378; J1650; Q0177